=== PATIENT | female | born 1955 | race African-American/Black ===

== ENCOUNTER → 2018-12-24 | Outpatient (CLI) | payer OTHER ==
[~2018-12-24] MED LIST: REGADENOSON 0.4 MG/5 ML DISP.SYRIN. IV ONE
--- NOTE | 2018-12-26 15:28 | PCVCIMAG ---
APPROVED REPORT Imaging Protocol: Rest Tc-99m/Stress Tc-99m 1 day Study performed: 12/24/2018 10:04:21 Indication: Pre-Operative CV evaluation, Dyspnea, Chest pain Patient Location: Out-Patient Stress Nurse: Beata Ferro RN, Rosalia Hughes RN VT Tech:[id number] Brown Ht: 5 ft 6 in Wt: 220 lbs BSA: 2.08 m2 HR: 60 bpm BP: 144/75 mmHg BMI: 35.50 Rhythm: Sinus Bradycardia Medical History Medical History: Hyperlipidemia, HTN Medications: Losartan, Simvastatin Allergies: Lisinopril Cardiac Risk Factors: Age Pretest Chest Pain Characteristics: No chest pain Exercise History: Indeterminate Physical Disabilities: Achilles injury Meds Held (24 hrs): Lisinopril Resting Data Rest SPECT myocardial perfusion imaging was performed in supine position 45 minutes following the intravenous injection of 9.7 mCi of Tc-99m Sestamibi. Time of rest injection: 0930 Date: 12/24/2018 Administration Route: IV Administration Site: Right AC Pharmacologic Stress Pharmacologic stress test was performed by injecting Regadenoson 0.4 mg IV push over 10-15 seconds immediately followed by the intravenous injection of 32.2 mCi of Tc-99m Sestamibi. Time of stress injection: 1100 Administration Route: IV Administration Site: Right AC Gated Stress SPECT was performed 45 minutes after stress injection. The images were gated to evaluate regional wall motion and calculate left ventricular ejection fraction. Stress Test Details Stress Test: Pharmacologic stress testing performed using 0.4 mg of regadenoson per 5 mL given IV over 10 seconds. Reason for pharmacologic stress test: physical limitation, achilles injury. HRMax Heart Rate (APMHR): 158 bpm Resting HR: 60 bpmTarget HR (85% APMHR): 134 bpm Max HR Achieved: 96 bpm % of APMHR: 60 Recovery HR: 83 bpm BP Resting BP: 144/75 mmHg Max BP: 151/91 mmHg Recovery BP: 145/80 mmHg ECG Resting ECG: Sinus Bradycardia Stress ECG: Sinus Bradycardia Arrhythmia: None Recovery ECG: Sinus Rhythm Clinical Reason for Termination: Completed protocol Stress Symptoms: Dyspnea, Dizziness, Nausea Symptoms resolved with caffeine. Stress ECG Conclusion 1. adequate response to iv lexiscan 2. inadequate heart rate for ecg diagnosis Study Data Post stress, the left ventricular ejection was 74%.. SSS: 0 SRS: 1 SDS: 0 TID = 1.05. Perfusion There is a medium area of moderately reduced uptake in the apical segment of the inferior wall which is seen on the stress images as well as the resting images. This area thickens and moves normally and is most consistent with attenuation artifact. Wall Motion Normal left ventricular wall motion. Nuclear Conclusion ECG Findings: non-diagnostic Clinical Findings: negative for ischemia Nuclear Findings: negative for ischemia Exercise Capacity: not assessed Left Ventricular Function: normal 1. low risk study 2. post stress lvef 74% with normal contractility <Conclusion> 1. adequate response to iv lexiscan 2. inadequate heart rate for ecg diagnosis
== END | disposition home or self-care (01) ==
LOC: EDSTATUS 07:29 → PCVCIMAG 09:11
PROVIDERS: ATTEND Internal Medicine
DX: Z01.818 Encounter for other preprocedural examination (principal); R07.9 Chest pain, unspecified; R06.09 Other forms of dyspnea; I10 Essential (primary) hypertension; E78.5 Hyperlipidemia, unspecified; Z88.8 Allergy status to other drugs, medicaments and biological substances; Z87.891 Personal history of nicotine dependence
CPT/HCPCS: 78452; 93017; A9500; J2785